=== PATIENT | male | born 1995 | race Caucasian/White ===

== ENCOUNTER → 2023-02-26 | Day surgery (SDC) | payer BC ==
[~2023-02-26] MED LIST: DESCOVY 200-251 EACH PO; ESMOLOL HCL 100MG/10ML 10 MG/ML VIAL ONE; FENTANYL CITRATE/PF 100MCG/2 ML INJ ONE; LACTATED RINGER'S 1,000 ML ONE; LACTULOSE20 GM/30 M PO; LIDOCAINE HCL 2% LOCAL INJ 5 ML SDV VIAL INJ ONE; LISINOPRIL10 MG PO; MIDAZOLAM HCL 2 MG/2 ML VIAL ONE; MILK OF MA2400 MG/10 PO; TIVICAY50 MG PO
[2023-02-26 15:25] VITALS: BP 118/66; PULSE 98; RESP 18; O2SAT 96
== END | disposition home or self-care (01) ==
LOC: OR 11:22
PROVIDERS: ATTEND Internal Medicine Gastroenterology
DX: K52.9 Noninfective gastroenteritis and colitis, unspecified (principal); K59.00 Constipation, unspecified; K62.89 Other specified diseases of anus and rectum; K64.8 Other hemorrhoids; I10 Essential (primary) hypertension; Z21 Asymptomatic human immunodeficiency virus [HIV] infection status; Z01.810 Encounter for preprocedural cardiovascular examination; Z79.899 Other long term (current) drug therapy
CPT/HCPCS: 45380; 83630; 83993; 87045; 87177; 87324; 87328; 87449; 93005; J2001; J2250; J3010; J7121; 45378